=== PATIENT | female | born 1970 | race Caucasian/White ===

== ENCOUNTER 2022-06-23 23:08 | Inpatient (IN) | payer OTHER ==
[~2022-06-23] VITALS: Ht 172.7 cm; Wt 95.3 kg
--- NOTE | 2022-06-23 23:08 | NUR ---
PT BIBA BLS ER BED 1
[2022-06-23 23:33] VITALS: BP 93/60
[2022-06-23 23:43] LABS: BASOPHILS % (AUTO) 0.3 % (0.0-2.0); EOSINOPHILS # (AUTO) 0.1 K/uL (0-0.4); EOSINOPHILS % (AUTO) 1.2 % (0.0-4.0); HEMATOCRIT 21.8 % (36-48); HEMOGLOBIN 7.4 g/dL (12.0-16.0); LYMPHOCYTES # (AUTO) 0.2 K/uL (2.5-16.5); LYMPHOCYTES % (AUTO) 2.3 % (20.5-51.1); MEAN CORPUSCULAR HEMOGLOBIN 31 pg (27-31); MEAN CORPUSCULAR HGB CONC 34 g/dL (33-37); MONOCYTES # (AUTO) 0.6 K/uL (0.8-1.0); MONOCYTES % (AUTO) 5.4 % (1.7-9.3); NEUTROPHILS # (AUTO) 9.5 K/uL (1.8-7.7); PLATELET COUNT (AUTO) 240 K/uL (140-450); WHITE BLOOD COUNT (AUTO) 10.5 K/uL (4.8-10.8)
--- NOTE | 2022-06-23 23:50 | NUR ---
IV established, to RAC with 20g, pt tolerated well. Fluids hung, medication given. Updated pt on POC with full returned verbal understanding. Pt in position of comfort. Will continue to monitor.
[2022-06-23] MEDS: MORPHINE SULFATE 4 MG/ML SYR IVP ONE ×2 (23:53→23:58)
[2022-06-23] MEDS: NACL 0.9% 1,000 ML IV ONE ×2 (23:54→23:57)
[2022-06-23 23:55] LABS: NEUTROPHILS % (AUTO) 90.8 % (42.2-75.2)
[2022-06-24 00:03] LABS: ALBUMIN 1.6 g/dL (3.4-5.0); ANION GAP 13.5 (8-16); CARBON DIOXIDE 26.6 mmol/L (21-32); CREATININE 0.8 mg/dL (0.6-1.3); POTASSIUM 3.1 mmol/L (3.5-5.1); TOTAL BILIRUBIN 0.3 mg/dL (0.0-1.0)
[2022-06-24 00:15] LABS: APPEARANCE,URINE CLEAR (CLEAR); BILIRUBIN,URINE NEGATIVE (NEGATIVE); BLOOD, URINE 1+ (NEGATIVE); COLOR,URINE YELLOW (YELLOW); LEUKOCYTE ESTERASE ,URINE 1+ (NEGATIVE); NITRITE, URINE NEGATIVE (NEGATIVE); UGLUCOSE NEGATIVE (NEGATIVE)
[2022-06-24 00:26] LABS: WBC,URINE 20-60 /HPF (0-5)
--- NOTE | 2022-06-24 00:34 | NUR ---
Pt to CT at this time.
--- NOTE | 2022-06-24 01:00 | NUR ---
Pt resting, no s/s of distress noted. Pt denies any needs at this time. VSS. Will continue to monitor pain/comfort.
[2022-06-24] MEDS ORDERED: cefTRIAXone 1,000 MG VIAL ONE (01:38)
[2022-06-24] MEDS ORDERED: MSCON15 PO (02:31)
[2022-06-24] MEDS ORDERED: HYDR-5080 PO (02:31)
--- NOTE | 2022-06-24 02:39 | NUR ---
Awaiting bed assignment. Pt aware. Will continue to monitor. Pt denies any needs at this time.
[2022-06-24] MEDS: NACL 0.9% 1,000 ML IV SCH ×2 (03:00→16:32)
[2022-06-24] MEDS ORDERED: ACETAMINOPHEN 325 MG TAB PO PRN (03:00)
[2022-06-24] MEDS ORDERED: ONDANSETRON 4 MG/2 ML VIAL IVP PRN (03:00)
--- NOTE | 2022-06-24 03:50 | NUR ---
Pt will be MS hold. Pt updated on POC with full returned verbal understanding. Pt in position of comfort. No s/s of distress noted. VSS. pt denies any needs at this time. Pt is with 3/10 pain which is tolerable for pt.
--- NOTE | 2022-06-24 04:30 | NUR ---
Pt had bowel movement. Soft brown large stool. Pt requested to take osman out as she says she will let us know if she can't urinate. Osman catheter was very dirty and covered with feces. Osman catheter Dc'd per pt request. Pt cleaned up and diaper placed. Updated pt on POC with full returned verbal understanding. VSS Will continue to monitor pain/comfort.
--- NOTE | 2022-06-24 06:00 | NUR ---
Pt resting, no s/s of distress noted. Pt denies any needs at this time. Will continue to monitor.
--- NOTE | 2022-06-24 07:34 | NUR ---
pt requesting pain meds at this time, pelvic pain 06/19
--- NOTE | 2022-06-24 07:35 | NUR ---
Note dionne in EDM - 06/24/22 at 0745 by [id number] pt sleeping, no ac distress, denies any n/v, mild headache 10/20, no fever or chills, o2 sat 99% ra, sr up times 2, awaits dispo
[2022-06-24] MEDS: HYDROcodone/APAP 5/325 MG 1 TAB TAB PO PRN ×4 (07:41→21:51)
--- NOTE | 2022-06-24 07:41 | NUR ---
pt medicated for abd pain 05/20, no n/v, no f/c, sr on cm, hr 99, o2 sat 99% ra, sr up times 2.
[2022-06-24] MEDS: DOCUSATE SODIUM 100 MG GELCAP PO SCH (09:00)
--- NOTE | 2022-06-24 09:27 | NUR ---
pablo green (sister) [phone]
--- NOTE | 2022-06-24 09:31 | NUR ---
pt sister would like to be called for pt placement at time of dx.
--- NOTE | 2022-06-24 10:48 | NUR ---
Report recieved from GABRIELA Stoll for transfer of care.
--- NOTE | 2022-06-24 10:50 | NUR ---
pt woke up, Colace not given, she has soft stool, contraindicated, has regular BMs pt cleaned, soft brown stools, small amount, new diaper on abd pain improved now 4-5
[2022-06-24] MEDS: MORPHINE SULFATE 2 MG/ML SYR IVP PRN ×2 (11:48→16:57)
--- NOTE | 2022-06-24 11:50 | NUR ---
Patient requesting pain medication. Medication given by RN as ordered.
--- NOTE | 2022-06-24 13:00 | NUR ---
Dr. Gomez, admitting doctor, evaluating patient at bedside.
--- NOTE | 2022-06-24 14:00 | NUR ---
soft bm at this time, noa area cleaned, diaper changed
--- NOTE | 2022-06-24 16:42 | NUR ---
Patient is laying in bed, respirations even and unlabored. All needs met by staff.
--- NOTE | 2022-06-24 18:21 | NUR ---
Patient was provided with noa-care. Patient was made clean and dry.
--- NOTE | 2022-06-24 18:26 | NUR ---
Patient was offered her dinner tray, patient is sitting up eating dinner.
--- NOTE | 2022-06-24 19:48 | NUR ---
Report given to GABRIELA Perez for transfer of care.
--- NOTE | 2022-06-24 20:00 | NUR ---
1930: REC'D PT FROM GABRIELA GAN TO ASSUME PLAN OF CARE. PT'S A/OX4, SLEEPING, BUT AROUSABLE. HAD GIVEN PAIN MEDS 1900 PER REPORT. PT'S M/S STATUS WAITING FOR ROOM/BED AVAILABILITY. 1999: GIVEN PERICARE, HAD BM SOFT STOOL, INC TO STOOL AND URINE. CONTINUE MONITOR.
[2022-06-25] MEDS: MORPHINE SULFATE 2 MG/ML SYR IVP PRN ×3 (00:23→15:31)
--- NOTE | 2022-06-25 00:23 | NUR ---
0023: PAIN MED IVP MORPHINE GIVEN FOR GEN PAIN 04/19 ALSO TIGRE CARE RENDERED.
--- NOTE | 2022-06-25 02:00 | NUR ---
PERICARE AND AM CARE RENDERED. HAD ANOTHER SOFT BM, AND INC TO URINE.
[2022-06-25] MEDS: HYDROcodone/APAP 5/325 MG 1 TAB TAB PO PRN ×5 (03:14→17:14)
[2022-06-25] MEDS: DOCUSATE SODIUM 100 MG GELCAP PO SCH (03:28)
[2022-06-25] MEDS: NACL 0.9% 1,000 ML IV SCH ×2 (03:28→17:09)
--- NOTE | 2022-06-25 06:07 | NUR ---
PT WILL TRANSFER TO MS ROOM 111B. REPORT TO YULIANA OCHOA
--- NOTE | 2022-06-25 06:14 | NUR ---
PT TO TRANSPORT TO MS ROOM 11. REPORT WAS GIVEN TO GABRIELA BRIDGES. PT'S STABLE , WAS GIVEN NORCO 1 TAB FOR C/O GEN PAIN. A/OX4. ON ROOM AIR. SATS >97%.
[2022-06-25 06:25] VITALS: BP 112/61
--- NOTE | 2022-06-25 07:02 | NUR ---
ENDORSE PATIENT TO DAY SHIFT RN FOR CONTINUITY OF CARE. PATIENT IS STABLE.
[2022-06-25 08:48] LABS: ANION GAP 11.9 (8-16); CARBON DIOXIDE 27.6 mmol/L (21-32); CREATININE 0.6 mg/dL (0.6-1.3); POTASSIUM 3.5 mmol/L (3.5-5.1)
[2022-06-25 09:19] LABS: ALBUMIN 1.6 g/dL (3.4-5.0); ANION GAP 13.6 (8-16); CARBON DIOXIDE 25.9 mmol/L (21-32); CREATININE 0.7 mg/dL (0.6-1.3); MAGNESIUM 1.7 mg/dL (1.8-2.4); POTASSIUM 3.5 mmol/L (3.5-5.1); TOTAL BILIRUBIN 0.3 mg/dL (0.0-1.0)
[2022-06-25 16:00] VITALS: BP 112/77
--- NOTE | 2022-06-25 19:14 | NUR ---
RECEIVED ENDORSEMENT FROM DAY SHIFT NURSE FOR CONTINUITY OF CARE. PT IS ON BED, AWAKE, ALERT AND VERBALLY RESPONSIVE. IV FLUID NS INFUSING WELL AT 80 ML/HR, NO SIGN/SYMPTOM OF INFECTION. IV SALINE LOCK ON RIGHT FOREARM INTACT AND PATENT. CONTINUE MONITORING.
--- NOTE | 2022-06-25 19:15 | NUR ---
PATIENT RESTING IN BED, DENIES PAIN/DISCOMFORT AT THIS TIME. AAO x4. NS INFUSING AT 80ML/HR TO RFA, IV SITE WNL. ALL NEEDS MET THROUGHOUT SHIFT. BED IN LOWEST POSITION, CALL LIGHT IN REACH, SAFETY MEASURES IN PLACE. REPORT GIVEN TO PM NURSE FOR CONTINUITY OF CARE.
[2022-06-25 20:00] VITALS: BP 114/74
--- NOTE | 2022-06-25 20:30 | NUR ---
PT HAD XTRA LARGE BM OF SOFT WITH NORMAL STOOL.
--- NOTE | 2022-06-25 22:15 | NUR ---
PT USED RESTROOM AND AMBULATE INDEPENDENTLY WITHOUT NURSE'S AWARENESS. NO FALL OR INJURY.
--- NOTE | 2022-06-25 22:20 | NUR ---
PT HAD A LARGE BM AND SOFT. ASSIST PT WITH PERSONAL HYGIENE.
--- NOTE | 2022-06-25 22:30 | NUR ---
IV SALINE LOCK ON RIGHT FOREARM DISLODGE. REINSERT IV SALINE LOCK ON LEFT HAND 24G.
[2022-06-26] MEDS: HYDROcodone/APAP 5/325 MG 1 TAB TAB PO PRN ×2 (00:20→05:21)
--- NOTE | 2022-06-26 00:20 | NUR ---
PT COMPLAINTS PAIN ON ABDOMEN /10, PAIN MEDICATION NORCO ADMINISTERED ORDERED.
[2022-06-26] MEDS: MORPHINE SULFATE 2 MG/ML SYR IVP PRN ×3 (02:30→14:05)
--- NOTE | 2022-06-26 02:30 | NUR ---
PT COMPLAINTS OF PAIN OF ABDOMINAL PAIN 10/10, PAIN MEDICATION MORPHINE ADMINISTERED ORDERED.
[2022-06-26] MEDS: NACL 0.9% 1,000 ML IV SCH ×2 (03:20→17:30)
--- NOTE | 2022-06-26 03:30 | NUR ---
PT ASLEEP, NO FACIAL GRIMACING.
--- NOTE | 2022-06-26 05:21 | NUR ---
PT COMPLAINTS OF ABDOMINAL PAIN OF 6/10, PAIN MEDICATION NORCO ADMINISTERED ORDER.
--- NOTE | 2022-06-26 05:30 | NUR ---
PT HAD BOWEL MOVEMENT OF MEDIUM AND SOFT. ASSIST PT AND RENDER PERSONAL HYGIENE CARE.
--- NOTE | 2022-06-26 06:21 | NUR ---
PT IS ASLEEP. NO FACIAL GRIMACING.
--- NOTE | 2022-06-26 07:40 | NUR ---
PT IS STABLE, ASLEEP AND NOT IN PAIN. ALL SAFETY MEASURES ARE IN PLACE. ENDORSED TO DAY SHIFT NURSE FOR CONTINUITY OF CARE.
[2022-06-26 07:41] LABS: ALBUMIN 1.7 g/dL (3.4-5.0); ANION GAP 11.9 (8-16); CARBON DIOXIDE 27.9 mmol/L (21-32); CREATININE 0.6 mg/dL (0.6-1.3); MAGNESIUM 1.6 mg/dL (1.8-2.4); TOTAL BILIRUBIN 0.2 mg/dL (0.0-1.0)
[2022-06-26 07:49] LABS: POTASSIUM 2.8 mmol/L (3.5-5.1)
[2022-06-26 08:00] VITALS: BP 116/76
--- NOTE | 2022-06-26 08:00 | NUR ---
RECEIVED REPORT, PATIENT RESTING IN BED, AAO x4, DENIES PAIN/DISCOMFORT AT THIS TIME. DENIES CP/CARDIAC DISCOMFORT. LS CTAB, RESPIRATIONS EVEN AND UL ON RA. NS INFUSING TO LH PER MD ORDER, IV SITE WNL. ALL NEEDS MET AT THIS TIME. BED IN LOW, SIDE RAILS x2, CALL LIGHT IN REACH.
[2022-06-26] MEDS ORDERED: MAG SULF 2000 MG/WATER PREMIX 50 ML IV PRN (08:35)
[2022-06-26] MEDS ORDERED: KCL 20 MEQ/WATER INJ PREMIX 200 ML IV PRN (08:35)
[2022-06-26] MEDS ORDERED: MAGNESIUM OXIDE 400 MG TAB PO PRN (08:35)
[2022-06-26 08:56] LABS: BASOPHILS # (AUTO) 0.1 K/uL (0.00-0.22); EOSINOPHILS # (AUTO) 0.2 K/uL (0-0.4); EOSINOPHILS % (AUTO) 1.6 % (0.0-4.0); HEMATOCRIT 22.4 % (36-48); HEMOGLOBIN 7.6 g/dL (12.0-16.0); LYMPHOCYTES # (AUTO) 0.3 K/uL (2.5-16.5); LYMPHOCYTES % (AUTO) 2.6 % (20.5-51.1); MEAN CORPUSCULAR HEMOGLOBIN 31 pg (27-31); MEAN CORPUSCULAR HGB CONC 34 g/dL (33-37); MEAN CORPUSCULAR VOLUME 92.3 fL (80-94); MONOCYTES # (AUTO) 0.5 K/uL (0.8-1.0); MONOCYTES % (AUTO) 5.1 % (1.7-9.3); NEUTROPHILS # (AUTO) 8.7 K/uL (1.8-7.7); NEUTROPHILS % (AUTO) 89.7 % (42.2-75.2); PLATELET COUNT (AUTO) 231 K/uL (140-450); RED BLOOD CELL COUNT(AUTO) 2.42 MIL/uL (4.20-5.40); RED CELL DISTRIBUTION WIDTH 19.3 % (11.6-13.7); WHITE BLOOD COUNT (AUTO) 9.7 K/uL (4.8-10.8)
[2022-06-26] MEDS ORDERED: POTASSIUM CHLORIDE 10 MEQ TABER PO SCH (09:00)
[2022-06-26] MEDS: DOCUSATE SODIUM 100 MG GELCAP PO SCH (09:00)
--- NOTE | 2022-06-26 10:45 | NUR ---
FIELDED CALL FROM PT SISTER IN LAW, MELISSA CLINE, , WHO IS REQUESTING WITH PATIENT BE SENT TO [facility]. PROVIDED MELISSA WITH INFORMATION HOW PLACEMENT WORKS AND THAT PLACEMENT IS CONTINGENT ON VARIOUS MOVING REQUIREMENTS/ AVAILABILITY/ INSURANCE, SKILLED NEED, ETC . SPOKE TO MELISSA ABOUT BARRIERS IN FINDING APPROPRIATE PLACEMENT. MELISSA IN UNDERSTANDING. REPORTED TO MELISSA, THAT PATIENT WILL BE PROVIDED WITH HOMELESS AND EMERGENCY ASSISTANCE RESOURCES IN THE EVENT SNF PLACEMENT CAN NOT BE MADE. ENCOURAGED MELISSA TO SPEAK WITH PT AND ASSIST PATIENT IN CALLING NUMBERS TO FIND APPROPRIATE PLACEMENT IF NOT ACCEPTED INTO SNF. Addendum: 06/26/22 at 1613 by Robert THIBODEAUX JONATHAN MET WITH PT AT BEDSIDE TO COMPLETE ASSESSMENT. PATIENT REPORTS RECENT HOMELESSNESS OF 06/08. PATIENT REPORTS RESIDING IN HOTEL PRIOR TO BEING HOMELESS HOWEVER SHE WAS EVICTED. PATIENT REPORTS EX- PREVIOUSLY PAID FOR HOTEL STAY HOWEVER, NO LONGER PAYS FOR STAYS. PT REPORTS MEETING WITH PCP, DR MATTA, NEEDED. LAST VISIT; "A COUPLE WEEKS AGO". PATIENT REPORTS MEDICATION COMPLIANCE AND DENIES BARRIERS IN ACCESS TO NEEDED MEDICATIONS. PATIENT RECEIVES MEDICATION FROM [facility] IN [place], WHEN NEEDED. PT REPORTS PREVIOUS TO THIS VISIT BEING AMBULATORY AND DENIES USE OF DME. PATIENT REPORTS COMPLETING ADL'S INDEPENDENTLY HOWEVER, PATIENT REPORTS OF RECENT STRUGGLING TO WALK. PATIENT DENIES MH HX. 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 PATIENT REPORTS METH USE IS RECREATIONAL AND SPANS OVER 10 YRS. PATIENT DENIES USE EFFECTS FAILY FX. PROVIDED PATIENT WITH PSYCHO EDUCATION ON SENIOR CARE USE. PATIETN RECEPTIVE. PATIENT ACCEPTED SUBSTANCE USE RESOURCES OFFERED BY JONATHAN. PT REPORTS DC PLAN IS TO BE ADMITTED TO SNF. PROVIDED PATIETN WITH HOW SNF PLACEMENT WORKS. PATIENT IN UNDERSTANDING.CM IS CURRENTLY WORKING ON IDENTIFYING SNF PLACEMENT FOR PT. PROVIDED PT WITH SUBSTANCE USE RESOURCES, EMERGENCY ASSISTANCE RESOURCES AND HOMELESS RESOURCES. ENCOURAGE PATIENT OT UTILIZE RESOURCES AND MAKE CALLS IN HE EVENT PATIENT WAS NOT ACCEPTED TO SNF. PATIENT IN UNDERSTANDING. SW INQUIRED ON ADDITIONAL RESOURCES NEEDED, PATIENT DECLINED. PT DENIES HH, DIABETES, DIALYSIS AND SNF HX.
--- NOTE | 2022-06-26 10:47 | NUR ---
P.T. NOTES P.T. EVAL COMPLETED; REFER TO EVAL FOR DETAILS.
--- NOTE | 2022-06-26 11:08 | NUR ---
PATIENT HAS BEEN SCREENED AND CATEGORIZED HIGH NUTRITION RISK. PATIENT WILL BE SEEN WITHIN 1-2 DAYS OF ADMISSION. 06/24/22-06/26/22 REVIEWED BY ISAÍAS JOHNSON RD
--- NOTE | 2022-06-26 15:58 | NUR ---
06/26/22 RD INITIAL ASSESSMENT COMPLETED PLEASE REFER TO NUTRITION ASSESSMENT UNDER CARE ACTIVITY FOR ESTIMATED NUTRITIONAL NEEDS. 1. CONTINUE CARDIAC DIET TOLERATED -IF PO INTAKE CONTINUES TO BE < 75%, RECOMMEND ENSURE BID FOR NUTRITION SUPPORT 2. RD TO FOLLOW-UP 7 DAYS, LOW RISK ISAÍAS JOHNSON, ADAM
--- NOTE | 2022-06-26 19:12 | NUR ---
PATIENT REQUESTING TO LEAVE AMA. PATIENT STATING THAT SHE "WANTS TO GO HOME, I DONT NEED TO BE HERE ANYMORE AND CAN TAKE MY PAIN MEDICATION OUTSIDE OF THIS HOSPITAL. I DONT WANT TO BE HERE ANYMORE, I DIDNT SLEEP AT ALL LAST NIGHT AND CANT TAKE ANOTHER NIGHT IN THIS PLACE." EXPLAINED TO PATIENT IMPORTANCE OF STAYING IN HOSPITAL FOR TREATMENT, PT INSISTING ON LEAVING AMA. PT STATES THAT [id number] WILL BE ARRIVING TO PICK HER UP. EXPLAINED TO PATIENT RISKS OF LEAVING AMA, PT VERBALIZED UNDERSTANDING AND STATED THAT SHE STILL WANTS TO LEAVE AMA. DR. AMAYA NOTIFIED AND AWARE. AMA FORM SIGNED AND PLACED IN CHART. IV SITE TO LH REMOVED, CATH INTACT, NO BLEEDING NOTED. PT DRESSED AND LEFT WITH ALL BELONGINGS INCLUDING CLOTHING, CELL PHONE, AND CELL PHONE [employer]. PT ACCOMPANIED TO MAIN ENTRANCE BY BEAN [employer]OUT [employer]OWER VIA WHEELCHAIR. HOUSE SUP NOTIFIED AND AWARE.
[2022-06-27] MEDS ORDERED: POTASSIUM CHLORIDE 10 MEQ TABER PO PRN (06:00)
--- NOTE | 2022-06-28 08:40 | NUR ---
LATE ENTRY- IV NORMAL SALINE AND CEFTRIAXONE DISCONTINUED AT 0614.
== END 2022-06-26 19:15 | disposition left against medical advice (07) | DRG 530 ==
LOC: MED 23:08 → MMU 06-24 02:59 → MTU 06-25 06:06 → OBSVTOIN 06-26 11:14
PROVIDERS: ADMIT Student in an Organized Health Care Education/Training Program; ATTEND Student in an Organized Health Care Education/Training Program
DX: C53.9 Malignant neoplasm of cervix uteri, unspecified (principal); R64 Cachexia; E44.1 Mild protein-calorie malnutrition; R53.81 Other malaise; N93.9 Abnormal uterine and vaginal bleeding, unspecified; Z20.822 Contact with and (suspected) exposure to COVID-19; E03.9 Hypothyroidism, unspecified; E78.5 Hyperlipidemia, unspecified; D50.9 Iron deficiency anemia, unspecified; Z68.31 Body mass index [BMI] 31.0-31.9, adult; E86.1 Hypovolemia
CPT/HCPCS: 96365; 96375; 99285; G0378; 36415; 80048; 80053; 81001; 83735; 84702; 85025; 87081; 87086; 97112; 97116; J0696; J2270; J7060; Q9967